=== PATIENT | female | born 1985 | race Caucasian/White ===

== ENCOUNTER 2016-05-16 18:44 | Emergency (ER) | payer OTHER ==
[2016-05-16] MEDS ORDERED: ONDANSETRON 4 MG/2 ML VIAL IVP STA (19:55)
[2016-05-16] MEDS ORDERED: SODIUM CHLORIDE 0.9% 2,000 ML IV STA (19:55)
[2016-05-16] MEDS ORDERED: KETOROLAC 30 MG/ML 1 ML VIAL IVP STA (19:57)
[2016-05-16 20:15] LABS: Basophils % (A) 1 %; CH 31.8; CHCM 35.1; Eosinophils # (A) 0.1 k/uL (0-0.7); Eosinophils % (A) 1 %; HCT 42.4 % (34.0-46.0); HDW 2.44; HGB 14.2 gm/dL (11.4-16.0); Luc # (Auto) 0.29; Luc % (Auto) 4; Lymphocytes # (A) 1.2 k/uL (1.0-4.8); Lymphocytes % (A) 16 %; MCH 30.6 pg (25.0-35.0); MCHC 33.6 g/dL (31.0-37.0); MCV 91.1 fL (80.0-100.0); Mean Platelet Volume 7.1; Monocytes # (A) 0.6 k/uL (0-1.0); Monocytes % (A) 8 %; Neutrophils # (A) 5.5 k/uL (1.3-7.7); Neutrophils % (A) 71 %; RBC 4.66 m/uL (3.80-5.40); RDW 12.6 % (11.5-15.5); WBC 7.8 k/uL (3.8-10.6); WBC (Perox) 7.89
[2016-05-16 20:24] LABS: ALT 24 U/L (9-52); AST 26 U/L (14-36); Alkaline Phosphatase 41 U/L (38-126); Amylase <30 U/L (30-110); Anion Gap 11 mmol/L; Blood Urea Nitrogen 6 mg/dL (7-17); Calcium 8.5 mg/dL (8.4-10.2); Carbon Dioxide 23 mmol/L (22-30); Chloride 104 mmol/L (98-107); Glucose 86 mg/dL (74-99); Non-African American GFR(MDRD) >60 (>60 ml/min/1.73 sqM); Potassium 3.5 mmol/L (3.5-5.1); Sodium 138 mmol/L (137-145); Total Bilirubin 0.5 mg/dL (0.2-1.3); Total Protein 6.7 g/dL (6.3-8.2)
[2016-05-16 20:47] VITALS: TEMP 98.6
[2016-05-16 20:57] LABS: Amorphous Sediment,Urine Rare /hpf; Appearance,Urine Cloudy (Clear); Bacteria,Urine Many /hpf; Bilirubin,Urine Negative (Negative); Glucose,Urine (UA) Negative (Negative); Ketones,Urine 1+ (Negative); Leukocyte Esterase,Urine Trace (Negative); Mucus,Urine Rare /hpf; Nitrite,Urine Negative (Negative); PH, Urine 6.5 (5.0-8.0); Particle Count 4875; Protein,Urine Negative (Negative); RBC,Urine 3 /hpf (0-5); Specific Gravity,Urine 1.008 (1.001-1.035); Squamous Epithelial Cell,Urine 4 /hpf (0-4); UA Billing (MACRO vs. MICRO) MICRO; WBC,Urine 7 /hpf (0-5)
--- NOTE | 2016-05-16 21:23 | ED ---
General Adult HPI - General Chief complaint: Nausea/Vomiting/Diarrhea Stated complaint: FLU/neck pain Time Seen by Provider: 05/16/16 19:45 Source: patient, RN notes reviewed Mode of arrival: wheelchair Limitations: no limitations - History of Present Illness Initial comments: 30-year-old female presented emergency department with multiple complaints. Patient states on Sunday she started having body aches, fever, nausea vomiting. Patient states that she hurts all over. Patient was seen at [facility] and was sent home with Robyn. She states that she was told to be reevaluated if she continued with symptoms. Patient states that she just feels miserable. Patient states she hasn't had a dry cough. Patient also complains of neck and back pain. She states she has a light headache. Patient states she has had some vomiting today and stride some Zofran earlier today with no relief. Patient denies any dysuria, hematura or any chance . Patient has had contacts with similar symptoms./ - Related Data Home Medications Medication Instructions Recorded Confirmed Dextroamphetamine/Amphetamine 15 mg PO QAM 05/16/16 05/16/16 [Adderall Xr] Lo Loestrin 1 tab PO HS 05/16/16 05/16/16 Ondansetron Odt [Zofran Odt] 4 mg PO Q12HR PRN 05/16/16 05/16/16 Sertraline [Zoloft] 100 mg PO HS 05/16/16 05/16/16 traZODone HCL [Desyrel] 100 mg PO HS 05/16/16 05/16/16 Allergies Allergy/AdvReac Type Severity Reaction Status Date / Time chlorine Allergy Rash/Hives Uncoded 05/16/16 19:41 Review of Systems ROS Statement: Those systems with pertinent positive or pertinent negative responses have been documented in the HPI. ROS Other: All systems not noted in ROS Statement are negative. Past Medical History Past Medical History: No Reported History Additional Past Medical History / Comment(s): Endometriosis, ovarian cysts, adenomiosis sp?, hypoglycemia History of Any Multi-Drug Resistant Organisms: None Reported Past Surgical History: Appendectomy, Hernia Repair Additional Past Surgical History / Comment(s): Laparoscopy for endometriosis Past Psychological History: No Psychological Hx Reported Smoking Status: Never smoker Past Alcohol Use History: Occasional Past Drug Use History: None Reported General Exam Limitations: no limitations General appearance: alert, in no apparent distress Head exam: Present: atraumatic, normocephalic, normal inspection Eye exam: Present: normal appearance, PERRL, EOMI. Absent: scleral icterus, conjunctival injection, periorbital swelling ENT exam: Present: normal exam, normal oropharynx, mucous membranes moist, TM's normal bilaterally, normal external ear exam Neck exam: Present: normal inspection, full ROM. Absent: tenderness, meningismus, lymphadenopathy Respiratory exam: Present: normal lung sounds bilaterally. Absent: respiratory distress, wheezes, rales, rhonchi, stridor Cardiovascular Exam: Present: regular rate, normal rhythm, normal heart sounds. Absent: systolic murmur, diastolic murmur, rubs, gallop, clicks GI/Abdominal exam: Present: soft, normal bowel sounds. Absent: distended, tenderness, guarding, rebound, rigid Neurological exam: Present: alert, oriented X3, CN II-XII intact Skin exam: Present: warm, dry, intact, normal color. Absent: rash Course Vital Signs 05/16/16 05/16/16 19:37 20:46 Temperature 98.9 F 98.6 F Pulse Rate 85 75 Respiratory 18 18 Rate Blood Pressure 117/61 115/71 O2 Sat by Pulse 98 100 Oximetry Medical Decision Making - Medical Decision Making 30-year-old female presents emergency Department with multiple complaints. Patient has influenza B. Patient states she does feel much improved after Zofran. Patiently not started on Tamiflu as symptoms have been present for 72 hours. Return parameters were discussed. - Lab Data Result diagrams: 05/16/16 20:00 05/16/16 20:00 Lab Results 05/16/16 05/16/16 05/16/16 Range/Units 20:00 20:00 20:00 WBC 7.8 (3.8-10.6) k/uL RBC 4.66 (3.80-5.40) m/uL Hgb 14.2 (11.4-16.0) gm/dL Hct 42.4 (34.0-46.0) % MCV 91.1 (80.0-100.0) fL MCH 30.6 (25.0-35.0) pg MCHC 33.6 (31.0-37.0) g/dL RDW 12.6 (11.5-15.5) % Plt Count 359 (150-450) k/uL Neutrophils % 71 % Lymphocytes % 16 % Monocytes % 8 % Eosinophils % 1 % Basophils % 1 % Neutrophils # 5.5 (1.3-7.7) k/uL Lymphocytes # 1.2 (1.0-4.8) k/uL Monocytes # 0.6 (0-1.0) k/uL Eosinophils # 0.1 (0-0.7) k/uL Basophils # 0.0 (0-0.2) k/uL Sodium 138 (137-145) mmol/L Potassium 3.5 (3.5-5.1) mmol/L Chloride 104 (98-107) mmol/L Carbon Dioxide 23 (22-30) mmol/L Anion Gap 11 mmol/L BUN 6 L (7-17) mg/dL Creatinine 0.76 (0.52-1.04) mg/dL Est GFR (MDRD) Af Amer >60 (>60 ml/min/1.73 sqM) Est GFR (MDRD) Non-Af >60 (>60 ml/min/1.73 sqM) Glucose 86 (74-99) mg/dL Calcium 8.5 (8.4-10.2) mg/dL Total Bilirubin 0.5 (0.2-1.3) mg/dL AST 26 (14-36) U/L ALT 24 (9-52) U/L Alkaline Phosphatase 41 (38-126) U/L Total Protein 6.7 (6.3-8.2) g/dL Albumin 3.7 (3.5-5.0) g/dL Amylase <30 L (30-110) U/L Lipase 93 (23-300) U/L Urine Color Urine Appearance (Clear) Urine pH (5.0-8.0) Ur Specific [place] (1.001-1.035) Urine Protein (Negative) Urine Glucose (UA) (Negative) Urine Ketones (Negative) Urine Blood (Negative) Urine Nitrate (Negative) Urine Bilirubin (Negative) Urine Urobilinogen (<2.0) mg/dL Ur Leukocyte Esterase (Negative) Urine RBC (0-5) /hpf Urine WBC (0-5) /hpf Ur Squamous Epith Cells (0-4) /hpf Amorphous Sediment (None) /hpf Urine Bacteria (None) /hpf Urine Mucus (None) /hpf Urine HCG, Qual (Not Detectd) Influenza Type A RNA Not Detected (Not Detectd) Influenza Type B (PCR) Detected H (Not Detectd) 05/16/16 05/16/16 Range/Units 20:25 20:25 WBC (3.8-10.6) k/uL RBC (3.80-5.40) m/uL Hgb (11.4-16.0) gm/dL Hct (34.0-46.0) % MCV (80.0-100.0) fL MCH (25.0-35.0) pg MCHC (31.0-37.0) g/dL RDW (11.5-15.5) % Plt Count (150-450) k/uL Neutrophils % % Lymphocytes % % Monocytes % % Eosinophils % % Basophils % % Neutrophils # (1.3-7.7) k/uL Lymphocytes # (1.0-4.8) k/uL Monocytes # (0-1.0) k/uL Eosinophils # (0-0.7) k/uL Basophils # (0-0.2) k/uL Sodium (137-145) mmol/L Potassium (3.5-5.1) mmol/L Chloride (98-107) mmol/L Carbon Dioxide (22-30) mmol/L Anion Gap mmol/L BUN (7-17) mg/dL Creatinine (0.52-1.04) mg/dL Est GFR (MDRD) Af Amer (>60 ml/min/1.73 sqM) Est GFR (MDRD) Non-Af (>60 ml/min/1.73 sqM) Glucose (74-99) mg/dL Calcium (8.4-10.2) mg/dL Total Bilirubin (0.2-1.3) mg/dL AST (14-36) U/L ALT (9-52) U/L Alkaline Phosphatase (38-126) U/L Total Protein (6.3-8.2) g/dL Albumin (3.5-5.0) g/dL Amylase (30-110) U/L Lipase (23-300) U/L Urine Color Yellow Urine Appearance Cloudy H (Clear) Urine pH 6.5 (5.0-8.0) Ur Specific [place] 1.008 (1.001-1.035) Urine Protein Negative (Negative) Urine Glucose (UA) Negative (Negative) Urine Ketones 1+ H (Negative) Urine Blood Small H (Negative) Urine Nitrate Negative (Negative) Urine Bilirubin Negative (Negative) Urine Urobilinogen 2.0 (<2.0) mg/dL Ur Leukocyte Esterase Trace H (Negative) Urine RBC 3 (0-5) /hpf Urine WBC 7 H (0-5) /hpf Ur Squamous Epith Cells 4 (0-4) /hpf Amorphous Sediment Rare H (None) /hpf Urine Bacteria Many H (None) /hpf Urine Mucus Rare H (None) /hpf Urine HCG, Qual Not Detected (Not Detectd) Influenza Type A RNA (Not Detectd) Influenza Type B (PCR) (Not Detectd) Disposition Clinical Impression: Influenza B, Nausea & vomiting Disposition: HOME SELF-CARE Condition: Stable Instructions: Acute Nausea and Vomiting (ED), Influenza (ED) Additional Instructions: Please return to the Emergency Department if symptoms worsen or any other concerns. Time of Disposition: 21:23
[2016-05-16 21:38] VITALS: BP 112/76; PULSE 82; RESP 16
== END 2016-05-16 21:38 | disposition home or self-care (01) ==
LOC: EC 18:44
DX: J10.1 Influenza due to other identified influenza virus with other respiratory manifestations (principal); R11.2 Nausea with vomiting, unspecified; Z79.899 Other long term (current) drug therapy; Z88.8 Allergy status to other drugs, medicaments and biological substances
CPT/HCPCS: 36415; 80053; 82150; 83690; 85025; 81001; 81025; 87502; 99284; 96374; 96375; 96361; J2405; J1885

== ENCOUNTER 2018-05-07 18:28 | Emergency (ER) | payer BC, OTHER ==
[2018-05-07] MEDS ORDERED: HYDROcodone/APAP 5-325MG 1 EACH TAB PO STA (19:25)
--- NOTE | 2018-05-07 19:33 | ED ---
Fall HPI - General Chief Complaint: Fall Stated Complaint: Fall, Shoulder injury Time Seen by Provider: 05/07/18 19:14 Source: patient, RN notes reviewed Mode of arrival: ambulatory Limitations: no limitations - History of Present Illness Initial Comments: 32-year-old female presents emergency Department with chief complaint of fall, left knee, left arm pain. Patient states that she tripped over a back blade of a tractor. Patient struck her left knee onto the blade. Patient also caught herself with her left arm. Patient points of pain at the left elbow and left wrist. Eyes any head injury no loss conscious. Denies any other injuries noted. Patient denies any laceration. Patient able to bear weight but very uncomfortable. - Related Data Home Medications Medication Instructions Recorded Confirmed Escitalopram [Lexapro] 20 mg PO DAILY 05/07/18 05/07/18 Lisdexamfetamine Dimesylate 30 mg PO DAILY 05/07/18 05/07/18 [Vyvanse] Melatonin 5 mg PO HS 05/07/18 05/07/18 Norethindrone-E.estradiol-Iron 1 tab PO HS 05/07/18 05/07/18 [Junel Fe 1 mg-20 Mcg Tablet] oxyCODONE HCL/ACETAMINOPHEN 1 tab PO DAILY PRN 05/07/18 05/07/18 [Percocet 5-325 mg] traZODone HCL 150 mg PO HS 05/07/18 05/07/18 Previous Rx's Medication Instructions Recorded Ibuprofen [Motrin] 600 mg PO Q8HR PRN #30 tab 05/07/18 Allergies Allergy/AdvReac Type Severity Reaction Status Date / Time chlorine Allergy Rash/Hives Uncoded 05/16/16 19:41 Review of Systems ROS Statement: Those systems with pertinent positive or pertinent negative responses have been documented in the HPI. ROS Other: All systems not noted in ROS Statement are negative. Past Medical History Past Medical History: No Reported History Additional Past Medical History / Comment(s): Endometriosis, ovarian cysts, adenomiosis sp?, hypoglycemia History of Any Multi-Drug Resistant Organisms: None Reported Past Surgical History: Appendectomy, Hernia Repair Additional Past Surgical History / Comment(s): Laparoscopy for endometriosis Past Psychological History: Anxiety Smoking Status: Never smoker Past Alcohol Use History: Occasional Past Drug Use History: None Reported General Exam Limitations: no limitations General appearance: alert, in no apparent distress Head exam: Present: atraumatic, normocephalic, normal inspection Neck exam: Present: normal inspection, full ROM. Absent: tenderness, meningismus, lymphadenopathy Respiratory exam: Present: normal lung sounds bilaterally. Absent: respiratory distress, wheezes, rales, rhonchi, stridor Cardiovascular Exam: Present: regular rate, normal rhythm, normal heart sounds. Absent: systolic murmur, diastolic murmur, rubs, gallop, clicks GI/Abdominal exam: Present: soft, normal bowel sounds. Absent: distended, tenderness, guarding, rebound, rigid Extremities exam: Present: other (Tenderness of the left wrist, left forearm and left elbow limited range of motion neurovascular intact, rings were removed at this time, no shoulder tenderness no obvious deformity, left knee full range of motion though moderate discomfort tenderness over the patella, medial medial aspect of the left knee, no tenderness above or below left knee remaining extremity exam within normal limits) Back exam: Present: normal inspection, full ROM. Absent: tenderness Skin exam: Present: warm, dry, intact, normal color. Absent: rash Course Vital Signs 05/07/18 19:00 Temperature 98.8 F Pulse Rate 93 Respiratory 18 Rate Blood Pressure 140/84 O2 Sat by Pulse 100 Oximetry Medical Decision Making - Medical Decision Making 32-year-old female presented from it for fall, left arm left knee injury. X- rays were obtained no acute fracture. Disposition Clinical Impression: Fall, Left wrist sprain, Strain of left elbow, Contusion of left knee Disposition: HOME SELF-CARE Condition: Stable Instructions (If sedation given, give patient instructions): Wrist Sprain (ED) Additional Instructions: Please return to the Emergency Department if symptoms worsen or any other concerns. Prescriptions: Ibuprofen [Motrin] 600 mg PO Q8HR PRN #30 tab PRN Reason: Pain Is patient prescribed a controlled substance at d/c from ED?: No Referrals: Domitila Hu DO [Primary Care Provider] - 1-2 days Time of Disposition: 20:53
--- NOTE | 2018-05-07 20:15 | XR ---
PROCEDURE: XR elbow complete LT - 3V DATE AND TIME: 05/07/2018 8:11 PM CLINICAL INDICATION: PHH; Pain TECHNIQUE: Department protocol COMPARISON: None FINDINGS: There is no fracture or malalignment. The soft tissues are unremarkable. IMPRESSION: NO ACUTE PROCESS.
--- NOTE | 2018-05-07 20:18 | XR ---
PROCEDURE: XR forearm LT - 2V DATE AND TIME: 05/07/2018 8:13 PM CLINICAL INDICATION: PHH; Pain TECHNIQUE: Department protocol COMPARISON: None FINDINGS: There is no fracture or malalignment. The soft tissues are unremarkable. IMPRESSION: NO ACUTE PROCESS.
--- NOTE | 2018-05-07 20:20 | XR ---
PROCEDURE: XR knee 4V LT - 4V DATE AND TIME: 05/07/2018 8:13 PM CLINICAL INDICATION: PH[facility]; Pain TECHNIQUE: Department protocol COMPARISON: None FINDINGS: There is no fracture or malalignment. The soft tissues are unremarkable. IMPRESSION: NO ACUTE PROCESS.
[2018-05-07] MEDS ORDERED: ACET/COD 300 MG/30 MG STARTER PACK 6 TAB BTL PO STA (20:53)
[2018-05-07 21:04] VITALS: BP 123/80; PULSE 82; RESP 19; TEMP 97.9
== END 2018-05-07 21:02 | disposition home or self-care (01) ==
LOC: EC 18:28
DX: S63.502A Unspecified sprain of left wrist, initial encounter (principal); S46.812A Strain of other muscles, fascia and tendons at shoulder and upper arm level, left arm, initial encounter; S80.02XA Contusion of left knee, initial encounter; F41.9 Anxiety disorder, unspecified; Z79.899 Other long term (current) drug therapy; Z91.018 Allergy to other foods; Z91.048 Other nonmedicinal substance allergy status; W01.0XXA Fall on same level from slipping, tripping and stumbling without subsequent striking against object, initial encounter
CPT/HCPCS: 99283

== ENCOUNTER → 2018-05-23 | Outpatient (CLI) | payer BC ==
--- NOTE | 2018-05-23 15:52 | US ---
EXAMINATION TYPE: US pelvis complete transvag DATE OF EXAM: 05/23/2018 COMPARISON: NONE CLINICAL HISTORY: R10.2 Pelvic Pain w/endometreosis. TECHNIQUE: . Transabdominal sonographic images of the pelvis were acquired. Transvaginal sonographi c images were medically necessary to better assess the following anatomy: cervix Date of LMP: 10/2010 , pt given medicine to stop periods , pt has had 2 surgeries to clear endometri osis EXAM MEASUREMENTS: Uterus: 6.0 x 2.7 x 4.0 cm Endometrial Stripe: 0.2 cm Right Ovary: 2.3 x 2.1 x 1.9 cm Left Ovary: 1.8 x 1.5 x 1.4 cm 1. Uterus: Anteverted cervix fluid collection or cystic 1.8 x 0.5 x 1.3 cm 2. Endometrium: wnl 3. Right Ovary: wnl portions seen 4. Left Ovary: wnl portions seen 5. Bilateral Adnexa: Obscured by overlying bowel gas 6. Posterior cul-de-sac: wnl Heterogeneous anteverted uterus is seen. Endometrium is not suspiciously thickened. No free fluid is seen in pelvic cul-de-sac. Elongated nabothian cyst measuring up to 13 mm transversely is seen in cer vix axial image 36. Both ovaries are identified without suspicious adnexal lesion appreciated on images saved. IMPRESSION: No suspicious finding seen to account for patient's symptoms of persistent pelvic pain.
--- NOTE | 2018-05-24 08:46 | USB ---
Reason for exam: clinical finding. History: Took hormonal contraceptives for 15 years. Indicated problem(s): pain in the left breast. Physical Findings: Nurse Summary: all soft, nodular, movable (nurse ts). US Breast LT Left complete breast ultrasound includes all four quadrants, the retroareolar region and axilla. Finding demonstrates o cystic or solid lesion seen. These results were verbally communicated with the patient and result sheet given to the patient on 05/23/18. ASSESSMENT: Negative, BI-RAD 1 RECOMMENDATION: Clinical management of the left breast. Manage on a clinical basis with regard to left breast pain.
== END | disposition home or self-care (01) ==
LOC: RADUSWWP 14:49
PROVIDERS: ATTEND Obstetrics & Gynecology
DX: N64.4 Mastodynia (principal); R10.2 Pelvic and perineal pain
CPT/HCPCS: 76830; 76856